=== PATIENT | male | born 1950 ===

== ENCOUNTER 2025-04-29 09:15 | Inpatient (IN) | payer OTHER ==
[~2025-04-29] VITALS: Ht 170.2 cm; Wt 70.3 kg
[2025-04-29 12:37] LABS: BASO % 1.0 % (0.1-1.2); EOS # 0.42 (0.04-0.54); EOS % 5.9 % (0.7-7.0); LYMPH # 2.45 (1.18-3.74); LYMPH % 34.4 % (19.3-53.1); MEAN PLATELET VOLUME 11.60 fl (9.4-12.4); MONO # 0.47 (0.24-0.82); MONO % 6.6 % (4.7-12.5); NEUT # 3.68 (1.56-6.13); NEUT % 51.7 % (34.0-71.1); RED CELL DISTRIBUTION WIDTH 13.4 % (11.6-14.4); URINE APPEARANCE Clear; URINE BILIRRUBIN Negative (NEGATIVE); URINE BLOOD Small; URINE COLOR Yellow; URINE GLUCOSE Negative (NEGATIVE); URINE KETONE Negative (NEGATIVE); URINE LEUKOCYTE Negative; URINE NITRATE Negative; URINE PROTEIN Trace (NEGATIVE); URINE UROBILINOGEN 0.2 E.U./dl
[2025-04-29 12:38] LABS: URINE BACTERIA 8.3 uL (0.0-1933); URINE EPITHELIAL CELLS 4.3 uL (0.0-38.8); URINE RBC 5.1 uL (0.0-20.8); URINE WBC 4.7 uL (0.0-23.2)
[2025-04-29 12:56] LABS: INR 1.02
[2025-04-29 13:12] LABS: URINE CAST 0.29 uL (0.0-1.40)
[2025-04-29 13:21] LABS: ALT/SGPT 23.0 U/L (12-78); AST/SGOT 9.0 U/L (15-37); BILIRUBIN TOTAL 0.55 mg/dL (0.3-1.2); BUN CREA RATIO 16.0 (7.0-25.0); CREATININE SERUM 1.27 mg/dL (0.70-1.30); GFR 55.74; GLOBULINA 3.6 G/DL (2.4-3.5); GLUCOSE FASTING 94.0 mg/dL (65-100); OSMOLALITY SERUM 293.0 MOSM/KG (275-295)
[2025-05-02] MEDS ORDERED: CEFTRIAXONE SODIUM 2,000 MG VIAL ONE (08:15)
[2025-05-02] MEDS ORDERED: METRONIDAZOLE/SODIUM CHLORIDE 500 MG/100 ML PIGGYBACK IV ONE (08:15)
[2025-05-02] MEDS ORDERED: HEMOSTATIC MATRIX 1 KIT KIT TOP ONE (08:19)
[2025-05-02] MEDS ORDERED: DIBUCAINE 30 GM TUBE ONE (08:20)
[2025-05-02] MEDS ORDERED: LIDOCAINE HCL 1%/EPINEPHRINE 20ML VIAL IJ ONE (08:20)
[2025-05-02] MEDS ORDERED: POVIDONE-IODINE 118 ML BOTT TOP ONE (08:20)
[2025-05-02] MEDS ORDERED: BUPIVACAINE HCL/MPF 0.5% 30ML VIAL ONE (08:20)
[2025-05-02] MEDS ORDERED: DEXTROSE 50 % IN WATER 0.5 G/ML VIAL IV PRN (10:15)
[2025-05-02] MEDS ORDERED: RINGERS SOLUTION,LACTATED 1,000 ML IV SCH (10:15)
[2025-05-02] MEDS ORDERED: ONDANSETRON HCL 2 MG/ML VIAL IV PRN (10:15)
[2025-05-02] MEDS ORDERED: OxyCODONE HCL 5 MG TABLET (ROXICODONE) PO PRN (10:15)
[2025-05-02 11:52] LABS: BASO % 0.7 % (0.1-1.2); EOS # 0.29 (0.04-0.54); EOS % 4.3 % (0.7-7.0); LYMPH # 2.03 (1.18-3.74); LYMPH % 30.3 % (19.3-53.1); MEAN PLATELET VOLUME 11.50 fl (9.4-12.4); MONO # 0.46 (0.24-0.82); MONO % 6.9 % (4.7-12.5); NEUT # 3.86 (1.56-6.13); NEUT % 57.5 % (34.0-71.1); RED CELL DISTRIBUTION WIDTH 13.3 % (11.6-14.4)
[2025-05-02] MEDS ORDERED: ACETAMINOPHEN 500 MG GEL..CAP PO SCH (14:00)
[2025-05-02 14:15] LABS: BASO % 0.3 % (0.1-1.2); EOS # 0.15 (0.04-0.54); EOS % 1.4 % (0.7-7.0); LYMPH # 1.89 (1.18-3.74); LYMPH % 17.5 % (19.3-53.1); MEAN PLATELET VOLUME 11.80 fl (9.4-12.4); MONO # 0.69 (0.24-0.82); MONO % 6.4 % (4.7-12.5); NEUT # 8.01 (1.56-6.13); NEUT % 73.9 % (34.0-71.1); RED CELL DISTRIBUTION WIDTH 13.3 % (11.6-14.4)
[2025-05-02] MEDS ORDERED: ENALAPRILAT DIHYDRATE 1.25 MG/ML VIAL IV ONE ×2 (14:28→15:24)
[2025-05-02 14:44] LABS: BUN CREA RATIO 16.0 (7.0-25.0); CREATININE SERUM 1.23 mg/dL (0.70-1.30); GFR 57.84; GLUCOSE FASTING 93.0 mg/dL (65-100); OSMOLALITY SERUM 291.0 MOSM/KG (275-295)
[2025-05-02] MEDS ORDERED: hydrALAZINE HCL 20 MG VIAL ONE (16:23)
[2025-05-02] MEDS ORDERED: GABAPENTIN 300 MG CAPSULE PO SCH (17:00)
[2025-05-02 17:50] VITALS: BP 164/83; O2SAT 97
[2025-05-02] MEDS ORDERED: FAMOTIDINE/PF 20 MG/2 ML VIAL IV PUSH SCH (21:00)
[2025-05-03 00:49] VITALS: BP 134/77; O2SAT 95
[2025-05-03 07:37] LABS: BASO % 0.4 % (0.1-1.2); EOS # 0.16 (0.04-0.54); EOS % 1.7 % (0.7-7.0); LYMPH # 1.89 (1.18-3.74); LYMPH % 19.7 % (19.3-53.1); MEAN PLATELET VOLUME 11.90 fl (9.4-12.4); MONO # 0.93 (0.24-0.82); MONO % 9.7 % (4.7-12.5); NEUT # 6.54 (1.56-6.13); NEUT % 68.2 % (34.0-71.1); RED CELL DISTRIBUTION WIDTH 13.5 % (11.6-14.4)
[2025-05-03 07:58] LABS: BUN CREA RATIO 14.0 (7.0-25.0); CREATININE SERUM 1.27 mg/dL (0.70-1.30); GFR 55.74; GLUCOSE FASTING 89.0 mg/dL (65-100); OSMOLALITY SERUM 294.0 MOSM/KG (275-295)
[2025-05-03 08:00] VITALS: BP 138/74; O2SAT 98
[2025-05-03] MEDS ORDERED: ENALAPRILAT DIHYDRATE 1.25 MG/ML VIAL IV PRN (09:15)
[2025-05-03] MEDS ORDERED: ENOXAPARIN SODIUM 40 MG/0.4 ML SYRINGE SUBCUTANEO SCH (17:00)
[2025-05-04] MEDS ORDERED: ENOXAPARIN SODIUM 40 MG/0.4 ML SYRINGE SUBCUTANEO SCH (09:00)
== END 2025-05-03 12:34 | disposition home or self-care (01) | DRG 349 ==
LOC: O/R 05-02 07:00 → SURG 05-02 09:15 → SURH 05-02 16:12 → SURG 05-02 19:00 → SURH 05-03 12:34
PROVIDERS: ADMIT Surgery; ATTEND Surgery
PROC: 0DBP7ZZ Excision of Rectum, Via Natural or Artificial Opening (ICD-10-PCS; principal; 2025-05-02 19:00)
DX: D12.8 Benign neoplasm of rectum (principal); K27.9 Peptic ulcer, site unspecified, unspecified as acute or chronic, without hemorrhage or perforation; F17.200 Nicotine dependence, unspecified, uncomplicated; N18.30 Chronic kidney disease, stage 3 unspecified